=== PATIENT | male | born 1930 | race Caucasian/White ===

== ENCOUNTER 2017-03-15 19:43 | Emergency (ER) | payer MEDICARE ==
[~2017-03-15] VITALS: Ht 170.2 cm; Wt 73.0 kg
[~2017-03-15 19:43] MED LIST: ACETAMINOPHEN1 EACH PO; ARICEPT10 MG PO; ATORVASTATIN CA10 MG PO; ATORVASTATIN CA80 MG PO; BUSPIRONE HCL5 MG PO; CELEXA10 MG PO; CIPRO500 MG PO; DOCUSATE SODIU100 MG PO; FINASTERIDE5 MG PO; GLUCOPHAGE500 MG PO; LORCET 5-325 M1 EACH PO; LOSARTAN POTASS50 MG PO; MELATONIN5 M2 PO; NEURONTIN300 MG PO; OMEPRAZOLE20 MG PO; TRAZODONE HCL50 MG PO; TRIPLE MAGNESIUM COM; ULTRAM50 MG PO
[2017-03-15] MEDS ORDERED: DICLOFENAC SOD100 G1 TOP (20:07)
== END 2017-03-15 21:13 | disposition home or self-care (01) ==
LOC: ED 19:43
DX: Z01.30 Encounter for examination of blood pressure without abnormal findings (principal); E11.9 Type 2 diabetes mellitus without complications; I10 Essential (primary) hypertension; Z87.442 Personal history of urinary calculi; Z88.6 Allergy status to analgesic agent; Z88.5 Allergy status to narcotic agent; Z79.899 Other long term (current) drug therapy; Z90.49 Acquired absence of other specified parts of digestive tract; Z98.890 Other specified postprocedural states
CPT/HCPCS: 80053; 81001; 85025; 87088; 99283

== ENCOUNTER 2017-03-29 16:27 | Emergency (ER) | payer MEDICARE ==
[~2017-03-29] VITALS: Ht 170.2 cm; Wt 68.0 kg
[~2017-03-29 16:27] MED LIST changes: +DICLOFENAC SOD100 G1 TOP
--- NOTE | 2017-03-29 18:23 | NUR ---
TUBE STATION ATTENDANT WAS CALLED IN FOR MODIFIED TRAUMA. PT'S , DAUGHTER, AND GRANDDAUGHTER WERE ALL PRESENT AT TIME OF [facility]LA[facility] ARRIVAL. TUBE STATION ATTENDANT PRAYED WITH THE FAMILY AND NOTIFIED THE PT'S HOME WORSHIP PER THE REQUEST OF HIS . PT WAS PUT IN AMBULANCE TO BE TAKEN TO AIRPORT TO BE FLOWN BY FIXED WING AIRCRAFT TO SIDNEY. PT'S FAMILY WAS GIVEN A LIFE FLIGHT PACK LIST.
--- NOTE | 2017-03-29 19:07 | EKG ---
[facility] [address] [facility] [place] [address] Signed Normal sinus rhythm Right bundle branch block Left anterior fascicular block Bifascicular block Abnormal ECG When compared with ECG of 22-OCT-2016 10:28, QT has lengthened Confirmed by FELIX HEADLEY MD ([id number]) on 03/29/2017 7:07:00 PM Electronically Signed By: FELIX HEADLEY MD 03/29/17 [id number] PATIENT NAME: KIRKDELVIS VANESSA Electrocardiogram DATE OF : [birth year] PHYSICIAN: FELIX HEADLEY MD REPORT #: [id number] REPORT IS CONFIDENTIAL AND NOT TO BE RELEASED WITHOUT AUTHORIZATION
== END 2017-03-29 18:20 | disposition short-term general hospital (02) ==
LOC: ED 16:27
DX: I63.9 Cerebral infarction, unspecified (principal); Z87.442 Personal history of urinary calculi; Z88.6 Allergy status to analgesic agent; Z88.5 Allergy status to narcotic agent; Z90.49 Acquired absence of other specified parts of digestive tract; Z98.890 Other specified postprocedural states
CPT/HCPCS: 70450; 71010; 80053; 81001; 83605; 84484; 85025; 85610; 85730; 87077; 87088; 87186; 93005; 93010; 96374; 96375; 99291; 99292; G0390; G0480; J2405; J7030